=== PATIENT | female | born 1970 | race Two or more races ===

== ENCOUNTER 2020-09-25 16:20 | Emergency (ER) | payer MEDICAID ==
[~2020-09-25] VITALS: Ht 167.6 cm; Wt 72.6 kg
--- NOTE | 2020-09-25 16:30 | NUR ---
"Started having pain/heaviness on chest area started 30min ago goes to back Hyperventilating/anxious on arrival also c/o numb face and hands" Patient a/ox4, breathing even and unlabored, no sob noted. Needs attended.
[2020-09-25] MEDS ORDERED: LORAZEPAM 1 MG TABLET ONE (16:37)
[2020-09-25] MEDS: LORAZEPAM 1 MG TABLET PO ONE (16:41)
[2020-09-25 16:42] LABS: BASOPHILS # (AUTO) 0.1 /CMM (0.0-0.2); BASOPHILS % (AUTO) 0.8 % (0.0-2.0); EOSINOPHILS % (AUTO) 6.3 % (0.0-6.0); HEMATOCRIT 42 % (33-45); HEMOGLOBIN 13.8 g/dL (11.5-14.8); LYMPHOCYTES # (AUTO) 3.3 /CMM (0.8-4.8); LYMPHOCYTES % (AUTO) 35.5 % (20.0-44.0); MEAN CORPUSCULAR HGB CONC 33 g/dl (31.0-36.0); MEAN CORPUSCULAR VOLUME 86 fL (82-100); MONOCYTES # (AUTO) 0.6 /CMM (0.1-1.30); MONOCYTES % (AUTO) 6.1 % (2.0-12.0); NEUTROPHILS # (AUTO) 4.7 /CMM (1.8-8.9); NEUTROPHILS % (AUTO) 51.3 % (43.0-81.0); PLATELET COUNT (AUTO) 246 /CMM (150-450); RED BLOOD CELL COUNT(AUTO) 4.94 MIL/uL (4.0-5.2); WHITE BLOOD COUNT (AUTO) 9.2 K/uL (4.3-11.0)
[2020-09-25 16:52] LABS: CALCIUM, SERUM 9.7 mg/dL (8.5-10.1); CARBON DIOXIDE 22 mmol/L (21-32); CHLORIDE 101 mmol/L (98-107); CREATININE 0.9 mg/dL (0.6-1.3); GLUCOSE 132 mg/dL (74-106); POTASSIUM 3.1 mmol/L (3.5-5.1); SODIUM SERUM 139 mmol/L (136-145); UREA NITROGEN, BLOOD 14 mg/dL (7-18)
[2020-09-25] MEDS ORDERED: PROPRANOLOL HCL 10 MG TABLET ONE (17:02)
[2020-09-25] MEDS: IV NS 0.9% 1,000 ML BAG IV ONE (17:09)
[2020-09-25] MEDS: PROPRANOLOL HCL 10 MG TABLET PO SCH (17:09)
--- NOTE | 2020-09-25 17:18 | NUR ---
PATIENT IN BED, RESTING, NO DISTRESS NOTED.
[2020-09-25] MEDS ORDERED: OMEP40CA13 PO (17:19)
[2020-09-25] MEDS ORDERED: ERGO500014 PO (17:19)
--- NOTE | 2020-09-25 17:57 | NUR ---
patient assisted to restroom by family.
[2020-09-25] MEDS ORDERED: LORA-259 PO (19:04)
--- NOTE | 2020-09-25 19:14 | NUR ---
PATIENT A/OX4, AMBULATORY WITH STEADY GAIT, TALKING AND SMILING. NO S/SX OF ANY DISTRESS AT THIS TIME. EXPLAINED LAB RESULTS WITH [employer] SECURITY ASSESSMENT. IV removed. Catheter intact and site benign. Pressure and 4x4 applied to site. No bleeding noted.Patient discharged to home in stable condition. Written and verbal after care instructions given. Patient verbalizes understanding of instruction.
[2020-09-25 19:15] VITALS: BP 128/80
== END 2020-09-25 19:15 | disposition home or self-care (01) ==
LOC: ER 16:22
DX: R07.89 Other chest pain (principal); R06.00 Dyspnea, unspecified; Z79.899 Other long term (current) drug therapy
CPT/HCPCS: 71045; 80048; 84484; 85025; 85378; 93005 ×3; 96360; 99285; J7030